=== PATIENT | male | born 2000 | race Caucasian/White ===

== ENCOUNTER 2020-05-11 07:05 | Day surgery (SDC) | payer OTHER ==
[2020-05-06 18:29] VITALS: BMI 27.9
[~2020-05-11 07:05] MED LIST: ACETAMINOPHEN TAB 500 MG TAB PO ONE; HEPARIN SODIUM,PORCINE 5,000 UNIT/ML 1 ML VIAL SQ ONE
[2020-05-11] MEDS ORDERED: LIDOCAINE 1% (10MG/ML) FOR IV START INTRADERMA PRN (08:12)
[2020-05-11] MEDS ORDERED: DEXAMETHASONE SOD PHOSPHATE 10 MG/ML 1 ML VIAL IV ONE (08:12)
[2020-05-11] MEDS ORDERED: ONDANSETRON 4 MG/2 ML VIAL ONE (08:21)
[2020-05-11] MEDS ORDERED: HEPARIN SODIUM,PORCINE 5,000 UNIT/ML 1 ML VIAL ONE (08:21)
[2020-05-11] MEDS ORDERED: ACETAMINOPHEN TAB 500 MG TAB ONE (08:21)
--- NOTE | 2020-05-11 08:31 | P.GSHP ---
History of Present Illness H&P Date: 05/11/20 Chief Complaint: Right inguinal hernia This a 20-year-old male presents today for laparoscopic robotic-assisted repair of right inguinal hernia. Patient developed a tender mass in his right groin. Past Medical History Past Medical History: GERD/Reflux Additional Past Medical History / Comment(s): Hx Kidney stones. Rt inguinal hernia. History of Any Multi-Drug Resistant Organisms: None Reported Additional Past Surgical History / Comment(s): wisdom teeth Past Anesthesia/Blood Transfusion Reactions: No Reported Reaction Smoking Status: Second hand smoke exposure - Past Family History Mother Family Medical History: No Reported History Medications and Allergies Home Medications Medication Instructions Recorded Confirmed Type No Known Home Medications 05/06/20 05/11/20 History Allergies Allergy/AdvReac Type Severity Reaction Status Date / Time amoxicillin Allergy Rash/Hives Verified 05/11/20 08:12 Surgical - Exam Vital Signs Temp Pulse Resp BP Pulse Ox 97.7 F 89 16 120/82 97 05/11/20 08:15 05/11/20 08:15 05/11/20 08:15 05/11/20 08:15 05/11/20 08:15 - General well developed, well nourished, no distress - Eyes PERRL - ENT normal pinna - Neck no masses - Respiratory normal expansion - Cardiovascular Rhythm: regular - Abdomen Abdomen: soft, non tender Hernia: inguinal (Reducible right) Assessment and Plan Assessment: Right inguinal hernia. We'll perform laparoscopic robotic-assisted repair.
[2020-05-11] MEDS: LACTATED RINGERS 1,000 ML IV SCH ×2 (08:32→12:31)
[2020-05-11] MEDS ORDERED: MIDAZOLAM 2 MG/2 ML VIAL IV ONE (08:38)
[2020-05-11] MEDS ORDERED: fentaNYL (PF) 50 MCG/ML 2 ML AMP IV ONE (08:38)
[2020-05-11] MEDS ORDERED: BUPIVACAINE (PF) 0.25% 30 ML VIAL SQ ONE (08:53)
--- NOTE | 2020-05-11 09:29 | P.ANPRN ---
Procedure Note - Anesthesia - Nerve Block Performed Bilateral Transversus Abdominis Single Time Out Performed: Yes Date of Procedure: 05/11/20 Procedure Start Time: 08:38 Procedure Stop Time: 08:43 Location of Patient: PreOp Indication: Acute Post-Operative Pain, Requested by Surgeon Sedation Type: Sedate with meaningful contact maintained Preparation: Sterile Prep Position: Supine Needle Types: Pajunk Needle Gauge: 21 Ultrasound used to visualize needle placement: Yes Ultrasound used to observe medication spread: Yes Injectate: 0.5% Ropivacaine (see comment for volume) (20 ml per side) Blood Aspirated: No Pain Paresthesia on Injection Noted: No Resistance on Injection: Normal Image Stored and Saved: Yes Events: Uneventful and Well Tolerated
[2020-05-11] MEDS ORDERED: KETOROLAC 15 MG/ML 1 ML VIAL ONE (09:56)
[2020-05-11] MEDS ORDERED: LIDOCAINE 1% INJ 10MG/ML (20 ML MDV) ONE (09:56)
[2020-05-11] MEDS ORDERED: GLYCOPYRROLATE 0.2 MG/ML 2 ML VIAL ONE (09:56)
[2020-05-11] MEDS ORDERED: KETAMINE 10 MG/ML 20 ML VIAL ONE (09:56)
[2020-05-11] MEDS ORDERED: ROPIVACAINE 5 MG/ML 30 ML VIAL ONE (09:56)
[2020-05-11] MEDS ORDERED: ROCURONIUM BROMIDE 10 MG/ML 5 ML VIAL IV ONE (09:56)
[2020-05-11] MEDS ORDERED: PROPOFOL 10 MG/ML 20 ML VIAL IV ONE (09:56)
[2020-05-11] MEDS ORDERED: fentaNYL (PF) 50 MCG/ML 2 ML AMP ONE (09:56)
[2020-05-11] MEDS ORDERED: SUCCINYLCHOLINE CHLORIDE 100 MG/5 ML SYR IV ONE (09:56)
[2020-05-11] MEDS ORDERED: NEOSTIGMINE 1 MG/ML 10 ML VIAL ONE (09:56)
[2020-05-11 10:02] VITALS: TEMP 98.6
--- NOTE | 2020-05-11 10:54 | P.OP ---
Date of Procedure: 05/11/20 Preoperative Diagnosis: Right inguinal hernia Postoperative Diagnosis: Right inguinal hernia Procedure(s) Performed: Operative Record biopsies Right inguinal hernia Anesthesia: PAPO Surgeon: Agus Larios Estimated Blood Loss (ml): 5 Pathology: none sent Condition: stable Disposition: PACU Description of Procedure: The patient's placed on the operating table in the supine position. The patient received general anesthesia. The patient's abdomen was prepped and draped in usual sterile fashion. The skin was anesthetized 1% local Xylocaine at the incision sites. Using an 11 blade a skin incision was made at the umbilicus. The fascia was grasped with a Rosina and then the peritoneal cavity was entered with the Veress needle. Position of the Veress needle was confirmed with a positive drop test. After adequate insufflation a 5 mm trocar was placed into the peritoneal cavity. The Laparoscope was placed the peritoneal cavity. And a robotic 8 mm trocar was placed in the right lateral position and then another 8 mm robotic trochars placed in the left lateral position. The original 5 mm trocar was exchanged for a 12 mm trocar. The patient was placed in reverse Trendelenburg and then the patient was docked to the robot. Next the peritoneum over top of the hernia was incised and then using blunt and sharp dissection and electrocautery the hernia sac was dissected free from the floor of the inguinal canal. The hernia sac was completely reduced into the peritoneal cavity. And then using the Pro kitchen porter mesh the hernia was repaired. The peritoneum was then sutured with 20V lock suture. The patient was then undocked the robot. The needle was withdrawn from the peritoneal cavity. The umbilical trocar site was closed with 0 Ethibond suture. The skin was closed interrupted 3-0 Monocryl suture. Dermabond dressing was applied. Patient was sent to recovery in stable condition.
[2020-05-11 11:35] VITALS: RESP 16
[2020-05-11 11:56] VITALS: BP 116/69; PULSE 66
== END 2020-05-11 13:09 ==
LOC: OR 07:05
PROVIDERS: ATTEND Surgery
DX: K40.90 Unilateral inguinal hernia, without obstruction or gangrene, not specified as recurrent (principal); K21.9 Gastro-esophageal reflux disease without esophagitis; Z77.22 Contact with and (suspected) exposure to environmental tobacco smoke (acute) (chronic); Z87.442 Personal history of urinary calculi; Z98.890 Other specified postprocedural states; F41.9 Anxiety disorder, unspecified; F32.9 Major depressive disorder, single episode, unspecified; Z88.0 Allergy status to penicillin
CPT/HCPCS: 64488; 49650; C1781; J2250; J1644; J1100; J2710; J0690; J2405; J2001; J3010; J2795; J1885; J0330; J2704

== ENCOUNTER → 2020-10-01 | Outpatient (CLI) | payer OTHER ==
--- NOTE | 2020-10-01 13:23 | US ---
EXAMINATION TYPE: US kidneys/renal and bladder DATE OF EXAM: 10/01/2020 COMPARISON: NONE CLINICAL HISTORY: R30.0 DYSURIA. Patient stated had ??? hernia repair last summer and has dysuria sin ce then EXAM MEASUREMENTS: Right Kidney: 9.8 x 6.3 x 4.9 cm Left Kidney: 10.7 x 6.2 x 5.9 cm Post Void Residual Volume: 147.4 mL Right Kidney: No hydronephrosis or masses seen Left Kidney: No hydronephrosis or masses seen Bladder: wnl Bilateral Jets seen: yes, noted post void Normal Post Void Residual: abnormal volume as is greater than 50.0ml. There is no evidence for hydronephrosis at this point in time. No nephrolithiasis is seen. No jarrell s are identified. The urinary bladder is anechoic. Bilateral ureteral jets are seen. IMPRESSION: 1. Post void residual. 2. No hydronephrosis or nephrolithiasis.
== END | disposition home or self-care (01) ==
LOC: RADUSWWP 12:32
PROVIDERS: ATTEND Family Medicine
DX: R39.198 Other difficulties with micturition (principal)
CPT/HCPCS: 76770

== ENCOUNTER 2022-09-01 11:21 | Emergency (ER) | payer OTHER ==
[2022-09-01 11:32] VITALS: BP 122/71; PULSE 66; RESP 18; TEMP 98.2
[2022-09-01] MEDS ORDERED: SODIUM CHLORIDE 0.9% 1,000 ML IV STA (12:08)
--- NOTE | 2022-09-01 12:09 | ED ---
General Adult HPI - General Chief complaint: GI Bleed Stated complaint: GI bleed Time Seen by Provider: 09/01/22 11:58 Source: patient, RN notes reviewed, old records reviewed Mode of arrival: ambulatory Limitations: no limitations - History of Present Illness Initial comments: This is a nontoxic-appearing 22-year-old male presents to the emergency room ambulatory with complaints of nausea vomiting and bloody stool for the past week. Patient states started Sunday with bloody stool has had some black specks in his vomiting. Denies any fevers. Does not take any medicine on a daily basis. History of kidney stones. Is a nonsmoker. -: days(s) (5) Location: abdomen Radiation: non-radiation Severity scale (1-10): 2 Associated Symptoms: denies other symptoms - Related Data Previous Rx's Medication Instructions Recorded Docusate [Colace] 100 mg PO BID #20 capsule 05/11/20 HYDROcodone/APAP 5-325MG [[place] 1 tab PO Q6HR PRN #10 tab 05/11/20 5-325] Pantoprazole Sodium [Protonix] 40 mg PO DAILY 30 Days #30 tab 09/01/22 Allergies Allergy/AdvReac Type Severity Reaction Status Date / Time amoxicillin Allergy Rash/Hives Verified 09/01/22 11:31 Review of Systems ROS Statement: Those systems with pertinent positive or pertinent negative responses have been documented in the HPI. ROS Other: All systems not noted in ROS Statement are negative. Past Medical History Past Medical History: GERD/Reflux Additional Past Medical History / Comment(s): Hx Kidney stones. Rt inguinal hernia. History of Any Multi-Drug Resistant Organisms: None Reported Additional Past Surgical History / Comment(s): wisdom teeth Past Anesthesia/Blood Transfusion Reactions: No Reported Reaction Past Psychological History: Anxiety, Depression Smoking Status: Second hand smoke exposure Past Alcohol Use History: None Reported Past Drug Use History: None Reported - Past Family History Mother Family Medical History: No Reported History General Exam Limitations: no limitations General appearance: alert, in no apparent distress Neck exam: Present: full ROM Respiratory exam: Absent: respiratory distress, accessory muscle use Cardiovascular Exam: Present: regular rate GI/Abdominal exam: Present: soft. Absent: distended, rigid Rectal exam: Present: normal inspection, normal rectal tone, hemorrhoids ( Internal). Absent: mass, tenderness Extremities exam: Present: full ROM Neurological exam: Present: alert, oriented X3, normal gait Psychiatric exam: Present: normal affect, normal mood Skin exam: Present: warm, dry, normal color. Absent: cyanosis, diaphoretic, petechiae, pallor Course Vital Signs 09/01/22 11:30 Temperature 98.2 F Pulse Rate 66 Respiratory 18 Rate Blood Pressure 122/71 O2 Sat by Pulse 99 Oximetry Medical Decision Making - Medical Decision Making On rectal exam is no evidence of blood, normal tone. Guaiac negative. An internal hemorrhoid is felt. Hemoglobin and hematocrit are stable. Abdomen is soft and nontender. Vital signs are stable. This is likely a viral gastroenteritis with improving symptoms. Patient was given a prescription for Protonix and a referral to traveling phlebotomist. Case discussed with Dr. Valdez - Lab Data Result diagrams: 09/01/22 12:19 09/01/22 12:19 Lab Results 09/01/22 09/01/22 09/01/22 Range/Units 12:19 12:19 12:19 WBC 6.0 (3.8-10.6) k/uL RBC 5.02 (4.30-5.90) m/uL Hgb 15.5 (13.0-17.5) gm/dL Hct 44.5 (39.0-53.0) % MCV 88.7 (80.0-100.0) fL MCH 30.9 (25.0-35.0) pg MCHC 34.8 (31.0-37.0) g/dL RDW 11.9 (11.5-15.5) % Plt Count 216 (150-450) k/uL MPV 7.2 Neutrophils % 54 % Lymphocytes % 31 % Monocytes % 7 % Eosinophils % 4 % Basophils % 1 % Neutrophils # 3.3 (1.3-7.7) k/uL Lymphocytes # 1.8 (1.0-4.8) k/uL Monocytes # 0.4 (0-1.0) k/uL Eosinophils # 0.3 (0-0.7) k/uL Basophils # 0.1 (0-0.2) k/uL APTT 24.5 (22.0-30.0) sec Sodium 139 (137-145) mmol/L Potassium 3.7 (3.5-5.1) mmol/L Chloride 104 (98-107) mmol/L Carbon Dioxide 27 (22-30) mmol/L Anion Gap 8 mmol/L BUN 15 (9-20) mg/dL Creatinine 1.00 (0.66-1.25) mg/dL Est GFR (CKD-EPI)AfAm >90 (>60 ml/min/1.73 sqM) Est GFR (CKD-EPI)NonAf >90 (>60 ml/min/1.73 sqM) Glucose 102 H (74-99) mg/dL Plasma Lactic Acid Shahzad (0.7-2.0) mmol/L Calcium 9.0 (8.4-10.2) mg/dL Total Bilirubin 0.5 (0.2-1.3) mg/dL AST 24 (17-59) U/L ALT 34 (4-49) U/L Alkaline Phosphatase 38 (38-126) U/L Total Protein 7.1 (6.3-8.2) g/dL Albumin 4.4 (3.5-5.0) g/dL Stool Occult Blood (Negative) 09/01/22 09/01/22 Range/Units 12:19 12:19 WBC (3.8-10.6) k/uL RBC (4.30-5.90) m/uL Hgb (13.0-17.5) gm/dL Hct (39.0-53.0) % MCV (80.0-100.0) fL MCH (25.0-35.0) pg MCHC (31.0-37.0) g/dL RDW (11.5-15.5) % Plt Count (150-450) k/uL MPV Neutrophils % % Lymphocytes % % Monocytes % % Eosinophils % % Basophils % % Neutrophils # (1.3-7.7) k/uL Lymphocytes # (1.0-4.8) k/uL Monocytes # (0-1.0) k/uL Eosinophils # (0-0.7) k/uL Basophils # (0-0.2) k/uL APTT (22.0-30.0) sec Sodium (137-145) mmol/L Potassium (3.5-5.1) mmol/L Chloride (98-107) mmol/L Carbon Dioxide (22-30) mmol/L Anion Gap mmol/L BUN (9-20) mg/dL Creatinine (0.66-1.25) mg/dL Est GFR (CKD-EPI)AfAm (>60 ml/min/1.73 sqM) Est GFR (CKD-EPI)NonAf (>60 ml/min/1.73 sqM) Glucose (74-99) mg/dL Plasma Lactic Acid Shahzad 0.9 (0.7-2.0) mmol/L Calcium (8.4-10.2) mg/dL Total Bilirubin (0.2-1.3) mg/dL AST (17-59) U/L ALT (4-49) U/L Alkaline Phosphatase (38-126) U/L Total Protein (6.3-8.2) g/dL Albumin (3.5-5.0) g/dL Stool Occult Blood Negative (Negative) Disposition Clinical Impression: Abdominal pain Disposition: HOME SELF-CARE Condition: Good Instructions (If sedation given, give patient instructions): Abdominal Pain (ED) Additional Instructions: Take Protonix as prescribed. Follow-up with traveling phlebotomist and/or your primary care doctor for continuation of care. Return to the emergency room with any new or concerning symptoms. Prescriptions: Pantoprazole Sodium [Protonix] 40 mg PO DAILY 30 Days #30 tab Is patient prescribed a controlled substance at d/c from ED?: No Referrals: Henrietta Arteaga DO [Primary Care Provider] - 1-2 days Isabela Mosqueda MD [STAFF PHYSICIAN] - 1-2 days Time of Disposition: 13:19
[2022-09-01 12:31] LABS: Basophils # (A) 0.1 k/uL (0-0.2); Basophils % (A) 1 %; Eosinophils # (A) 0.3 k/uL (0-0.7); Eosinophils % (A) 4 %; HCT 44.5 % (39.0-53.0); HGB 15.5 gm/dL (13.0-17.5); Lymphocytes # (A) 1.8 k/uL (1.0-4.8); Lymphocytes % (A) 31 %; MCH 30.9 pg (25.0-35.0); MCHC 34.8 g/dL (31.0-37.0); MCV 88.7 fL (80.0-100.0); Mean Platelet Volume 7.2; Monocytes # (A) 0.4 k/uL (0-1.0); Monocytes % (A) 7 %; Neutrophils # (A) 3.3 k/uL (1.3-7.7); Neutrophils % (A) 54 %; Platelet Count 216 k/uL (150-450); RBC 5.02 m/uL (4.30-5.90); RDW 11.9 % (11.5-15.5)
[2022-09-01 12:48] LABS: ALT 34 U/L (4-49); AST 24 U/L (17-59); African American GFR (CKD) >90 (>60 ml/min/1.73 sqM); Albumin 4.4 g/dL (3.5-5.0); Alkaline Phosphatase 38 U/L (38-126); Anion Gap 8 mmol/L; Blood Urea Nitrogen 15 mg/dL (9-20); Carbon Dioxide 27 mmol/L (22-30); Chloride 104 mmol/L (98-107); Glucose 102 mg/dL (74-99); Non-African American GFR(CKD) >90 (>60 ml/min/1.73 sqM); Potassium 3.7 mmol/L (3.5-5.1); Sodium 139 mmol/L (137-145); Total Bilirubin 0.5 mg/dL (0.2-1.3); Total Protein 7.1 g/dL (6.3-8.2)
[2022-09-01] MEDS ORDERED: PANTOPRAZOLE 40 MG TABLET PO STA (13:17)
== END 2022-09-01 14:03 | disposition home or self-care (01) ==
LOC: EC 11:21
DX: R10.9 Unspecified abdominal pain (principal); K21.9 Gastro-esophageal reflux disease without esophagitis; F41.9 Anxiety disorder, unspecified; F32.A Depression, unspecified; Z77.22 Contact with and (suspected) exposure to environmental tobacco smoke (acute) (chronic); Z88.0 Allergy status to penicillin; Z79.899 Other long term (current) drug therapy
CPT/HCPCS: 36415; 80053; 82272; 83605; 85025; 85730; 96360; 96361; 99284

== ENCOUNTER → 2022-09-08 | Outpatient (CLI) | payer OTHER ==
--- NOTE | 2022-09-08 09:35 | US ---
EXAMINATION TYPE: US abdomen complete DATE OF EXAM: 09/08/2022 COMPARISON: Renal ultrasound 10/01/2020 CLINICAL HISTORY: R30.31 RLQ pain. Right sided pain x 2 weeks TECHNIQUE: Multiple sonographic images of the abdomen are obtained. FINDINGS: EXAM MEASUREMENTS: Liver Length: 15.2 cm Gallbladder Wall: 0.2 cm CBD: 0.4 cm Spleen: 11.0 cm Right Kidney: 9.4 x 4.5 x 4.9 cm Left Kidney: 11.1 x 5.8 x 5.1 cm REFUELER NOTES: Technical limitations due to large amount of overlying bowel content Pancreas: Obscured by bowel gas Liver: wnl Gallbladder: non-mobile echogenic areas noted, possible polyps Evidence for sonographic Bobo's sign: no CBD: visualized portion appears wnl Spleen: wnl Right Kidney: no evidence of hydronephrosis Left Kidney: no evidence of hydronephrosis Upper IVC: wnl Abd Aorta: wnl The liver is homogenous. The intrahepatic portion of the IVC and proximal abdominal aorta are within normal limits. There is no evidence of cholelithiasis. Small polyps measuring up to 3 mm demonstrat ed within the gallbladder. Common bile duct is unremarkable. The visualized portions of the pancrea s are homogenous. The spleen is unremarkable. Kidneys are symmetric and free of hydronephrosis. No renal lesions are seen. IMPRESSION: 1. No acute process. 2. Small gallbladder polyps measuring up to 3 mm.
== END | disposition home or self-care (01) ==
LOC: RADUSWWP 08:31
PROVIDERS: ATTEND Family Medicine
DX: K82.4 Cholesterolosis of gallbladder (principal)
CPT/HCPCS: 76700

== ENCOUNTER 2022-10-02 09:51 | Day surgery (SDC) | payer OTHER ==
[2022-09-28 15:12] VITALS: BMI 29.0
[2022-10-02] MEDS ORDERED: LIDOCAINE 1% (10MG/ML) FOR IV START INTRADERMA PRN (12:56)
[2022-10-02] MEDS ORDERED: LACTATED RINGERS 1,000 ML IV SCH (12:56)
[2022-10-02 13:11] VITALS: TEMP 97
[2022-10-02] MEDS ORDERED: LIDOCAINE 2% INJ 20 MG/ML (2 ML VIAL) ONE (14:21)
[2022-10-02] MEDS ORDERED: PROPOFOL 10 MG/ML 20 ML VIAL IV ONE (14:21)
--- NOTE | 2022-10-02 14:39 | P.GSHP ---
History of Present Illness H&P Date: 10/02/22 Chief Complaint: Epigastric pain, GI bleed This a 22-year-old male presents today for EGD and colonoscopy. Patient with epigastric pain and rectal bleeding. Past Medical History Past Medical History: GERD/Reflux Additional Past Medical History / Comment(s): Hx Kidney stones. BLOOD IN STOOL History of Any Multi-Drug Resistant Organisms: None Reported Past Surgical History: Hernia Repair Additional Past Surgical History / Comment(s): wisdom teeth Past Anesthesia/Blood Transfusion Reactions: No Reported Reaction Smoking Status: Never smoker, Second hand smoke exposure - Past Family History Mother Family Medical History: No Reported History Medications and Allergies Home Medications Medication Instructions Recorded Confirmed Type Pantoprazole Sodium [Protonix] 40 mg PO DAILY 30 Days #30 tab 09/01/22 09/28/22 Rx Allergies Allergy/AdvReac Type Severity Reaction Status Date / Time amoxicillin Allergy Rash/Hives Verified 09/28/22 15:03 Surgical - Exam Vital Signs Temp Pulse Resp BP Pulse Ox 97.0 F L 71 16 109/72 97 10/02/22 13:05 10/02/22 13:05 10/02/22 13:05 10/02/22 13:05 10/02/22 13:05 - General well developed, well nourished, no distress - Eyes PERRL - ENT normal pinna - Neck no masses - Respiratory normal expansion - Cardiovascular Rhythm: regular - Abdomen Abdomen: soft, non tender Assessment and Plan Assessment: Epigastric pain, GI bleed. We'll perform EGD and colonoscopy.
--- NOTE | 2022-10-02 14:55 | P.OP ---
Date of Procedure: 10/02/22 Preoperative Diagnosis: Epigastric pain GI bleed Postoperative Diagnosis: Antral gastritis Internal hemorrhoids Poor colon prep Procedure(s) Performed: EGD Colonoscopy Anesthesia: MAC Surgeon: Agus Larios Pathology: other (Antrum) Condition: stable Disposition: PACU Description of Procedure: The patient's placed on the endoscopy table in the lateral position. He received IV sedation. The gastro-/oropharynx passed in the esophagus and stomach. Scope some placed through the pylorus. The first and second portion of the duodenum appeared normal. Scope was then brought back the antrum this. Mildly inflamed. A biopsies performed. Scope was unretroflexed and remainder the stomach appeared normal. The GE junction was at 40 cm per the distal esophagus. Normal. The proximal esophagus appeared normal. Scope withdrawn for patient. Next digital rectal exam was performed. This revealed a few internal hemorrhoids. Flexible colonoscope was then placed patient anus and passed throughout the limb. The right colon had a large amount liquid stool which prevented visualization of the cecum. The scope was then withdrawn. Visualized right colon appeared normal. However there is a large amount liquid stool. The transverse colon appeared normal. The descending colon appeared normal. The sigmoid colon appeared normal. Scope was then brought back the rectum and this appeared normal. Scope was then withdrawn through the anus and there were internal hemorrhoids noted. There is no evidence of any GI bleed. Presumed patient may have had bleeding from hemorrhoids.
[2022-10-02 15:52] VITALS: BP 96/70; PULSE 98; RESP 18
== END 2022-10-02 14:23 | disposition home or self-care (01) ==
LOC: ORWHC2ENDO 09:51
PROVIDERS: ATTEND Surgery
DX: K29.50 Unspecified chronic gastritis without bleeding (principal); K64.8 Other hemorrhoids; K21.9 Gastro-esophageal reflux disease without esophagitis; Z88.0 Allergy status to penicillin; Z98.890 Other specified postprocedural states; Z79.899 Other long term (current) drug therapy
CPT/HCPCS: 43239; 45378; J2704; J2001; 88305

== ENCOUNTER 2022-12-27 12:19 | Day surgery (SDC) | payer OTHER ==
[2022-12-22 09:30] VITALS: BMI 29.2
[~2022-12-27 12:19] MED LIST changes: -ACETAMINOPHEN TAB 500 MG TAB PO ONE; +ACETAMINOPHEN TAB 500 MG TAB PO PRN; +DEXAMETHASONE SOD PHOSPHATE 4 MG/ML 1 ML VIAL IV ONE; -HEPARIN SODIUM,PORCINE 5,000 UNIT/ML 1 ML VIAL SQ ONE; +HEPARIN SODIUM,PORCINE/PF 5,000 UNIT/0.5 ML SYRINGE SQ PRN; +HYDROmorphone 0.5 MG/0.5 ML SYRINGE IVP PRN; +LIDOCAINE 1% (10MG/ML) FOR IV START INTRADERMA PRN; +ONDANSETRON 4 MG/2 ML VIAL IVP ONE
[2022-12-27 13:21] VITALS: RESP 16
[2022-12-27] MEDS: LACTATED RINGERS 1,000 ML IV SCH ×2 (13:31→17:25)
[2022-12-27] MEDS ORDERED: GLYCOPYRROLATE 0.2 MG/ML 2 ML VIAL ONE (16:06)
[2022-12-27] MEDS ORDERED: SUCCINYLCHOLINE CHLORIDE 200 MG/10 ML VIAL IV ONE (16:06)
[2022-12-27] MEDS ORDERED: KETAMINE 10 MG/ML 20 ML VIAL ONE (16:06)
[2022-12-27] MEDS ORDERED: ROCURONIUM 10 MG/ML (5 ML VIAL) IV ONE (16:06)
[2022-12-27] MEDS ORDERED: MIDAZOLAM 2 MG/2 ML VIAL ONE (16:06)
[2022-12-27] MEDS ORDERED: LIDOCAINE 2% INJ 20 MG/ML (2 ML VIAL) ONE (16:06)
[2022-12-27] MEDS ORDERED: fentaNYL (PF) 50 MCG/ML 2 ML AMP ONE (16:06)
[2022-12-27] MEDS ORDERED: NEOSTIGMINE 1 MG/ML 10 ML VIAL ONE (16:06)
[2022-12-27] MEDS ORDERED: PROPOFOL 10 MG/ML 20 ML VIAL IV ONE (16:06)
[2022-12-27] MEDS ORDERED: KETOROLAC 15 MG/ML 1 ML VIAL ONE (16:06)
[2022-12-27] MEDS ORDERED: BUPIVACAIN-EPI 0.25%-1:200,000 30 ML VIAL SQ ONE (16:26)
--- NOTE | 2022-12-27 16:59 | P.OP ---
Date of Procedure: 12/27/22 Preoperative Diagnosis: Recurrent right inguinal hernia Postoperative Diagnosis: Recurrent right inguinal hernia Procedure(s) Performed: Repair of right recurrent right inguinal hernia with Prolene hernia mesh plug Excision of cord lipoma Anesthesia: PAPO Surgeon: Agus Larios Pathology: none sent Condition: stable Disposition: PACU Description of Procedure: MDESCRIPTION OF PROCEDURE: The patient was placed in the supine position after receiving adequate anesthesia. Patients groin was prepped and draped in the usual sterile fashion. A standard hernia incision was made and the subcutaneous tissues were divided with electrocautery. The fascia of the external oblique was exposed. A aubree the fascia was made with #15 blade. The fascia was then opened with pair of Metzenbaum scissors. A Weitlaner retractor was placed in the wound and the cord structures were grasped and dissected free from the inguinal canal. A rubber Vane drain was placed around the cord structures. The cord lipoma was dissected free sent to pathology. The hernial sac was seen on the anterior-medial portion of the cord and this was dissected free from the cord. The hernia sac was then invaginated to the peritoneal cavity. Using blunt finger dissection, the preperitoneal space was dissected and then the Prolene hernial mesh plug was placed into the prepared space. The inferior leaf was expanded. The superior leaf was secured to the pubic tubercle using 2-0 Prolene suture. The lateral portion of the superior leaf was incised and cords tied and secured to the transversalis fascia using 2-0 Prolene suture. Fascia of the external oblique was then closed using #0 Vicryl suture. The [place] drain was removed. The Scarpas fascia was then closed with 3-0 Vicryl suture and skin was closed with 3-0 Monocryl. The patient tolerated the procedure well.
[2022-12-27 17:04] VITALS: TEMP 98.3
[2022-12-27 18:21] VITALS: BP 114/78
[2022-12-27 18:42] VITALS: PULSE 71
== END 2022-12-27 19:12 | disposition home or self-care (01) ==
LOC: OR 12:19
PROVIDERS: ATTEND Surgery
DX: K40.91 Unilateral inguinal hernia, without obstruction or gangrene, recurrent (principal); D17.6 Benign lipomatous neoplasm of spermatic cord; K21.9 Gastro-esophageal reflux disease without esophagitis; Z88.0 Allergy status to penicillin; Z79.899 Other long term (current) drug therapy; Z98.890 Other specified postprocedural states
CPT/HCPCS: 49520; C1781; J2250; J0330; J1100; J2710; J0690; J2405; J3010; J1885; J2704; J1644; J2001; 88304